=== PATIENT | female | born 1955 | race Caucasian/White ===

== ENCOUNTER 2018-05-16 11:00 | Emergency (ER) | payer OTHER ==
[~2018-05-16] VITALS: Ht 157.5 cm; Wt 61.2 kg
[2018-05-16 11:13] VITALS: BP 136/71; Ht 157.5 cm; Wt 61.2 kg
== END 2018-05-16 12:29 | disposition home or self-care (01) ==
LOC: ED 11:00
DX: N39.0 Urinary tract infection, site not specified (principal); E78.00 Pure hypercholesterolemia, unspecified